=== PATIENT | female | born 1935 | race Caucasian/White ===

== ENCOUNTER 2018-02-02 21:51 | Emergency (ER) | payer MEDICARE, BC ==
[~2018-02-02] VITALS: Ht 167.6 cm; Wt 99.5 kg
[~2018-02-02 21:51] MED LIST: ATEN1TAB73 PO; CALCTAB98 PO; EZET10 PO; IRBE150T49 PO; MELO7.5T PO; OMEP20CA5 PO; VITA400C28 PO; WARF1TAB PO
[2018-02-02 21:57] VITALS: BP 185/83; PULSE 113; RESP 14; TEMP 97.7; O2SAT 94
[2018-02-02] MEDS ORDERED: XARE15TA PO (22:19)
[2018-02-02] MEDS ORDERED: LOSA25TA PO (22:19)
[2018-02-02] MEDS ORDERED: ATEN25TA PO (22:19)
[2018-02-02] MEDS ORDERED: SIMV20TA PO (22:19)
[2018-02-02] MEDS ORDERED: PANT40TA3 PO (22:19)
[2018-02-02] MEDS ORDERED: BACT400T PO (22:19)
[2018-02-02] MEDS ORDERED: VITA10004 PO (22:19)
[2018-02-02] MEDS ORDERED: COEN1CAP PO (22:19)
[2018-02-02] MEDS ORDERED: LEVO25TA4 PO (22:19)
[2018-02-02] MEDS ORDERED: ASPI81CH6 CHEW (22:19)
[2018-02-02] MEDS ORDERED: CLIN150C14 PO (22:26)
--- NOTE | 2018-02-02 22:27 | PD ---
HPI Chief Complaint: Skin Problem Time Seen by Provider: 22:16 Travel History International Travel<30 days: No Contact w/Intl Traveler<30days: No Traveled to known affect area: No History of Present Illness HPI 82-year-old female complains of has increasing pain and swelling the right forearm especially since this morning. Patient went to the local urgent care center and was given prescription of Bactrim DS. Patient was advised to go to emergency room immediately if increasing redness swelling. Patient took 2 doses of Bactrim DS since this afternoon so far. Patient states that she is not up-to-date with TD booster. Patient denies any fever chills. Patient denies any other problem. PFSH Past Medical History Arthritis: Yes Atrial Fibrillation: Yes Anxiety: Yes Diminished Hearing: Yes (BILAT HEARING AIDS) GERD: Yes Hypertension: Yes Inguinal Hernia: Yes (1988 REPAIR) Sleep Apnea: Yes Thyroid Disease: Yes Influenza Vaccination: Yes Menopausal: No : 0 Ovarian Cysts: Yes (1972) Past Surgical History Appendectomy: Yes (1940) Cholecystectomy: Yes (1972) Family History Family Hypercholesterolemia: Yes Social History Alcohol Use: Yes (OCCASIONAL) Tobacco Use: No (QUIT 1992) Substance Use: No Allergies-Medications (Allergen,Severity, Reaction): Coded Allergies: levofloxacin (Unverified Allergy, Unknown, 02/02/18) meperidine (Unverified Allergy, Unknown, 02/02/18) Reported Meds & Prescriptions Reported Meds & Active Scripts Active Reported Co Q-10 (Coenzyme Q10 (Ubidecarenone)) 100 Mg Cap 1 Cap PO DAILY Vitamin B-12 Cr (Cyanocobalamin) 1,000 Mcg Tab 1,000 Mcg PO DAILY Simvastatin 20 Mg Tab 20 Mg PO DAILY Bactrim (Sulfamethoxazole-Trimethoprim) 400-80 Mg Tab 1 Tab PO BID Pantoprazole (Pantoprazole Sodium) 40 Mg Tab 40 Mg PO DAILY Levothyroxine (Levothyroxine Sodium) 25 Mcg Tab 25 Mcg PO DAILY Losartan (Losartan Potassium) 25 Mg Tab 25 Mg PO DAILY Aspirin Low Dose (Aspirin) 81 Mg Chew 81 Mg CHEW DAILY Atenolol 25 Mg Tab 25 Mg PO DAILY Xarelto (Rivaroxaban) 15 Mg Tab 15 Mg PO DAILY Review of Systems General / Constitutional: No: Fever Eyes: No: Visual changes HENT: No: Headaches Cardiovascular: No: Chest Pain or Discomfort Respiratory: No: Shortness of Breath Gastrointestinal: No: Abdominal Pain Genitourinary: No: Dysuria Musculoskeletal: No: Pain Skin: No Rash Neurologic: No: Weakness Psychiatric: No: Depression Endocrine: No: Polydipsia Hematologic/Lymphatic: No: Easy Bruising Physical Exam Narrative GENERAL: Well-nourished, well-developed patient. SKIN: Focused skin assessment warm/dry. HEAD: Normocephalic. EYES: No scleral icterus. No injection or drainage. NECK: Supple, trachea midline. No JVD or lymphadenopathy. CARDIOVASCULAR: Regular rate and rhythm without murmurs, gallops, or rubs. RESPIRATORY: Breath sounds equal bilaterally. No accessory muscle use. GASTROINTESTINAL: Abdomen soft, non-tender, nondistended. MUSCULOSKELETAL: No cyanosis, or edema. BACK: Nontender without obvious deformity. No CVA tenderness. Patient had a small skin abrasion distal right forearm over the ulnar aspect of the right forearm. Mild redness swelling tenderness associated with that. No discharge noted. Data Data Last Documented VS Vital Signs Date Time Temp Pulse Resp B/P (MAP) Pulse Ox O2 Delivery O2 Flow Rate FiO2 02/02/18 21:57 97.7 113 14 185/83 (117) 94 Orders Orders Clindamycin (Cleocin) (02/02/18 22:30) Tetanus/Diphtheria Tox Adult (Tetanus/Di (02/02/18 22:30) MDM Medical Decision Making Medical Screen Exam Complete: Yes Emergency Medical Condition: Yes Differential Diagnosis Differential diagnosis including cellulitis, abscess. Narrative Course 82-year-old female with small skin abrasion and redness swelling tenderness associated with the wound on the right forearm. Patient was seen in urgent care center today and given prescription for Bactrim DS. Td booster given. Clindamycin 300 mg p.o. given. Diagnosis Primary Impression: Cellulitis of right forearm Patient Instructions: General Instructions Additional Instructions: Continue Bactrim DS as directed. Clindamycin as directed. Wound care daily. Follow-up with personal physician. Return if increasing redness swelling after 2 days antibiotic. Med/Other Pt SpecificInfo: Prescription(s) given Scripts Clindamycin (Clindamycin) 150 Mg Cap 300 MG PO TID for Infection, #60 CAP 0 Refills Prov: Jarret Sharma MD 02/02/18 Disposition: 01 DISCHARGE HOME Condition: Stable ZacharyHung MD Feb 02, 2018 22:26
[2018-02-02] MEDS ORDERED: CLINDAMYCIN 150 MG CAP PO ONE (22:30)
[2018-02-02] MEDS ORDERED: TETANUS/DIPHTHERIA TOXOID ADULT 0.5 ML VIAL IM ONE (22:30)
== END 2018-02-02 23:00 | disposition home or self-care (01) ==
LOC: PHED 21:51
DX: L03.113 Cellulitis of right upper limb (principal); I10 Essential (primary) hypertension; I48.91 Unspecified atrial fibrillation; K21.9 Gastro-esophageal reflux disease without esophagitis; E07.9 Disorder of thyroid, unspecified; G47.30 Sleep apnea, unspecified; H91.93 Unspecified hearing loss, bilateral; Z23 Encounter for immunization; Z79.01 Long term (current) use of anticoagulants; Z87.39 Personal history of other diseases of the musculoskeletal system and connective tissue; Z86.59 Personal history of other mental and behavioral disorders
CPT/HCPCS: 99283